=== PATIENT | female | born 1955 | race Caucasian/White ===

== ENCOUNTER → 2017-10-03 13:10 | Outpatient (CLI) | payer BC, SELFPAY ==
[2017-10-03 14:08] LABS: Amphetamine Urine VISTA NEGATIVE (<1000 ng/mL); Barbiturate Urine VISTA NEGATIVE (< 200 ng/mL); Benzodiazepine Urine VISTA NEGATIVE (< 200 ng/mL); Cocaine Urine VISTA NEGATIVE (< 300 ng/mL); Ecstacy Urine VISTA NEGATIVE (< 500 ng/mL); Methadone Urine VISTA NEGATIVE (< 300 ng/mL); PCP Urine VISTA NEGATIVE (< 25 ng/mL); THC Urine VISTA NEGATIVE (< 50 ng/mL); Vista UDS pH Range 7
== END ==
PROVIDERS: Family Provider Family Medicine; PCP Family Medicine; Visit Provider Anesthesiology Pain Medicine
DX: F11.20 Opioid dependence, uncomplicated (principal)
CPT/HCPCS: 80307

== ENCOUNTER 2017-12-08 08:15 | Emergency (ER) | payer BC, SELFPAY ==
[2017-12-08 08:16] VITALS: BP 101/71; PULSE 75; RESP 16; TEMP 37.1; O2SAT 98; BMI 20.2
--- NOTE | 2017-12-08 08:27 | ED.VISSUMM ---
- ER Visit Summary Date of Service: 12/08/17 Chief Complaint: Nausea, vomiting, diarrhea History of Present Illness: The patient is a 61 F who has had the above symptoms for the past 4 days. She states she has had multiple episodes of vomiting and loose stools. She has intermittent abdominal cramping with this. Denies any blood in the vomit or diarrhea. She can keep her medications down. She denies a fever. Denies any other symptoms. Physical Examination: Vital signs reviewed. HEENT exam unremarkable. Heart is regular rate and rhythm without murmurs. Lungs are clear to auscultation. Abdomen is soft and nontender. Extremities reveal no edema. Skin exam normal. Neurologic exam normal. Test Results: Potassium 2.5, sodium 130, chloride 89. White blood cell count 14.5 Emergency Department Course and Treatment: Given saline as well as Zofran. She still had some nausea so she was given Phenergan which help with her symptoms. She does have hypokalemia. This is replenished IV and orally. Patient will be given Phenergan for home. This is likely a viral etiology Treatment Plan: [] Disposition: Discharge Impression: Nausea, vomiting, diarrhea, hypokalemia This note was generated with XMOS dictation software. It may contain incorrect words, spelling, and punctuation that were not noted in review of the chart prior to signing ED Disposition - Plan for ED Patient: Chief Complaint: Nausea/Vomiting/Diarrhea Referrals: Moises Bean DO [Primary Care Provider] -
[2017-12-08] MEDS: 0.9% Normal Saline 1,000 ML 1000 ML IV (09:19)
[2017-12-08] MEDS: Ondansetron 4 MG/2 ML Vial IV (09:19)
[2017-12-08 09:23] LABS: Absolute Lymphocyte Count 2.19 X10^3/ul (0.83-4.51); Absolute Neutrophil Count 10.8 X10^3/uL (2.0-7.7); Basophil# 0.03 X10^3/uL; Basophil% 0.2 % (0-1); Eosinophil# 0.05 X10^3/uL; Eosinophils% 0.3 % (0-5); Hematocrit 45.2 % (37-47); Lymphocyte # 2.19 X10^3/ul (4.0); Lymphocyte % 15.1 % (19-41); Mean Corp Hgb Conc 35.4 g/gl (32-36); Mean Corpuscular Hgb 30.4 pg (27.0-32.0); Mean Corpuscular Volume 85.9 fL (81-99); Mean Platelet Vol. 9.7 fl (6.2-12.0); Monocyte# 1.36 X10^3/uL; Monocyte% 9.4 % (0-10); Neutrophil % 74.7 % (47-70); POSITIVE COUNT NO; POSITIVE DIFFERENTIAL NO; POSITIVE MORPHOLOGY NO; Platelet Count 315 K/mm3 (150-450); RBC Distribution Width CV 12.7 % (11.6-14.6); RBC Distribution Width SD 39.8 fl (35.1-43.9); Red Blood Count 5.26 M/mm3 (4.2-5.4); White Blood Count 14.5 K/mm3 (4.4-11.0)
[2017-12-08 09:45] LABS: AST(SGOT) 24 U/L (15-37); Alanine Aminotransfer ALT/SGPT 28 U/L (13-56); Albumin, Serum 3.7 g/dL (3.2-5.0); Alkaline Phosphatase 69 U/L (45-117); Anion Gap 10 (5-15); BUN 15 mg/dL (7-18); BUN/Creat Ratio 21.2 RATIO (10-20); Calcium,Total 9.2 mg/dL (8.5-10.1); Chloride 89 mmol/L (98-107); Creatinine, Serum 0.71 mg/dL (0.55-1.02); EST Glomerular Filtration Rate 90 mL/min (>60); Est Glom Filt Rate - Afr Amer 108 mL/min (>60); Estimated Creatinine Clearance 60.66 ml/min; Globulin 3.8 g/dL (2.2-4.2); Glucose 121 mg/dL (74-106); Lipase 92 U/L (73-393); Potassium 2.5 mmol/L (3.5-5.1); Protein, Total 7.5 g/dL (6.4-8.2); Sodium Level 130 mmol/L (136-145)
--- NOTE | 2017-12-08 09:47 | ED.RN ---
POTASSIUM 2.5, AWARE.
[2017-12-08] MEDS: proMETHazine 25 MG/ML Syringe 12.5 MG IV (10:15)
--- NOTE | 2017-12-08 10:57 | ED.DEP ---
ED Disposition - Plan for ED Patient: Disposition: Home or Assisted Living Chief Complaint: Nausea/Vomiting/Diarrhea Instructions: ED Diet Vomiting Diarrhea Prescriptions: proMETHazine tablet [Phenergan] 25 mg PO Q6H PRN PRN #10 tab PRN Reason: Nausea Referrals: Moises Bean DO [Primary Care Provider] -
[2017-12-08 11:53] VITALS: BP 161/93; PULSE 74; RESP 12; O2SAT 100
[2017-12-08 13:03] VITALS: BP 155/78; PULSE 73; RESP 16; O2SAT 99
== END 2017-12-08 13:05 | disposition home or self-care (01) ==
PROVIDERS: Emergency Provider Emergency Medicine; Family Provider Family Medicine; PCP Family Medicine
DX: R11.2 Nausea with vomiting, unspecified (principal); R19.7 Diarrhea, unspecified; E87.6 Hypokalemia; I10 Essential (primary) hypertension; Z72.0 Tobacco use
CPT/HCPCS: 80053; 83690; 85025; 96365; 96366; 96375; 99282; J7030; A4216; J2405

== ENCOUNTER → 2018-01-04 14:10 | Outpatient (CLI) | payer BC, SELFPAY ==
--- NOTE | 2018-01-04 17:49 | MRI_ITS ---
STUDY: MRI THORACIC SPINE WITHOUT CONTRAST REASON FOR EXAM: Female, 62 years old. Thoracic pain TECHNIQUE: Standardized fat and water weighted pulse sequences were obtained in the sagittal and axial planes. COMPARISON: None. FINDINGS: Normal kyphosis of the thoracic spine. Mild dextroconvex scoliosis. At T1-T2, disc osteophyte complex is present with mild central canal and bilateral foraminal stenoses. At T2-3, disc osteophyte complex is present with mild central canal and right foraminal stenoses. At T7-8, left paracentral disc protrusion is present with mild central canal and left foraminal stenoses. At T9-10, central disc protrusion is present with mild central canal stenosis. The other disc levels are unremarkable. No evidence of exiting nerve root impingement. Normal visualized thoracic cord. Normal conus medullaris that terminates at the . The soft tissue structures are unremarkable. MRI/Spine Thoracic (Routine) IMPRESSION: Multilevel degenerative disc disease as described. No evidence of cord pathology or nerve root impingement. Electronically Signed: Temo Justice MD at 4:59 EDT Tel , Service support ,
== END ==
LOC: MRI 01-31 14:10
PROVIDERS: Family Provider Family Medicine; PCP Family Medicine; Referring Provider Anesthesiology Pain Medicine; Visit Provider Anesthesiology Pain Medicine
DX: M54.6 Pain in thoracic spine (principal)
CPT/HCPCS: 72146

== ENCOUNTER → 2018-03-14 12:39 | Outpatient (CLI) | payer BC, SELFPAY ==
--- NOTE | 2018-03-14 12:40 | CDU_ITS ---
Reason For Study: Left carotid bruit Rt. Velocities/BP Lt. Velocities/BP Prox CCA 86.2/21.1 cm/sec. Prox CCA 76.8/22.9 cm/sec. Mid CCA 72.1/24.6 cm/sec. Mid CCA 76.2/24 cm/sec. Dist CCA 82.1/22.9 cm/sec. Dist CCA 82.1/26.4 cm/sec. Prox ICA 78.6/23.5 cm/sec. Prox ICA 128/33.4 cm/sec. Mid ICA 91.5/28.7 cm/sec. Mid ICA 79.9/29 cm/sec. Dist ICA 71.8/23.1 cm/sec. Dist ICA 73.1/18.4 cm/sec. Rt. ICA/CCA = 1.11. Lt. ICA/CCA = 1.67. Prox ECA 74.5/15.2 cm/sec. Prox ECA 76.2/14.7 cm/sec. Rt. Vert. 63.2/20 cm/sec. Lt. Vert. 24.7/9.62 cm/sec. Right Extracranial There is intimal thickening but no significant atherosclerotic plaque noted in the right common carotid artery. There is heterogeneous, smooth atherosclerotic plaque noted in the right internal carotid artery. There is intimal thickening but no significant atherosclerotic plaque noted in the right external carotid artery. Antegrade flow is noted in the right vertebral artery. Left Extracranial There is intimal thickening but no significant atherosclerotic plaque noted in the left common carotid artery. There is heterogeneous, irregular atherosclerotic plaque noted in the left internal carotid artery. The atherosclerotic plaque causes acoustic shadowing. There is intimal thickening but no significant atherosclerotic plaque noted in the left external carotid artery. Antegrade flow is noted in the left vertebral artery. Procedure Carotid Duplex 97387. Exam performed in department. Interpretation Summary Mild (<50%) stenosis right extracranial internal carotid. Mild (<50%) stenosis left extracranial internal carotid. Flow within the vertebral arteries is antegrade bilaterally. Ordering Physician: Moises Bean Referring Physician: Moises Bean Performed By: Toni BASSETT, Ragini NAILS and Student
--- OUTSIDE RECORDS SUMMARY | 2018-04-30 16:15 | XMS RPT_ITS ---
:1955 Author Organization OHIP Care Team Providers Name Role Phone Michelle Oh Attending Unavailable Tara Ohman Referring Unavailable Moises Bean Primary Care Unavailable Moises Bean Primary Care Unavailable Perry Gonzalez Attending Unavailable Michelle Oh Attending Unavailable Althea, Taraman Referring Unavailable Moises Bean Primary Care Unavailable Moises Bean Attending Unavailable Moises Bean Referring Unavailable Moises Bean Primary Care Unavailable Moises Bean Attending Unavailable Geneva, Moises Referring Unavailable Geneva, Moises Primary Care Unavailable PROBLEMS PROBLEMS DATE TYPE CONDITION / CODE ATTENDING STATUS SOURCE 10/17/2017 Unknown F11.20 - Opioid Basali, Ayman Active [place] dependence, Community uncomplicated / Hospital F11.20(ICD-10) Repository PROCEDURES PROCEDURES No Procedure Records FoundRESULTS RESULTS CAROTID DUPLEX Observed: 03/18/2018 Status: F Source: [place] ULTR[facility]OUND 10:09 AM [facility] REPOSITORY [facility] Cardiovascular Services [address] [place] [address] Carotid Duplex Ultrasound 03/14/18 1245 MR#: [id number] Acct: [id number] Name: ASHLEY SOLANO Rep #: [id number] : 1955 62 From: Miguel Arriaga MD Attending Dr: Moises Bean DO Status: REG CLI Ordering Dr: Moises Bean DO Date: 03/14/18 Location: [facility] Sex: F C Admitted: Reason For Study: Left carotid bruit Rt. Velocities/BP Lt. Velocities/BP Prox CCA 86.2/21.1 cm/sec. Prox CCA 76.8/22.9 cm/sec. Mid CCA 72.1/24.6 cm/sec. Mid CCA 76.2/24 cm/sec. Dist CCA 82.1/22.9 cm/sec. Dist CCA 82.1/26.4 cm/sec. Prox ICA 78.6/23.5 cm/sec. Prox ICA 128/33.4 cm/sec. Mid ICA 91.5/28.7 cm/sec. Mid ICA 79.9/29 cm/sec. Dist ICA 71.8/23.1 cm/sec. Dist ICA 73.1/18.4 cm/sec. Rt. ICA/CCA = 1.11. Lt. ICA/CCA = 1.67. Prox ECA 74.5/15.2 cm/sec. Prox ECA 76.2/14.7 cm/sec. Rt. Vert. 63.2/20 cm/sec. Lt. Vert. 24.7/9.62 cm/sec. Right Extracranial There is intimal thickening but no significant atherosclerotic plaque noted in the right common carotid artery. There is heterogeneous, smooth atherosclerotic plaque noted in the right internal carotid artery. There is intimal thickening but no significant atherosclerotic plaque noted in the right external carotid artery. Antegrade flow is noted in the right vertebral artery. Left Extracranial There is intimal thickening but no significant atherosclerotic plaque noted in the left common carotid artery. There is heterogeneous, irregular atherosclerotic plaque noted in the left internal carotid artery. The atherosclerotic plaque causes acoustic shadowing. There is intimal thickening but no significant atherosclerotic plaque noted in the left external carotid artery. Antegrade flow is noted in the left vertebral artery. Procedure Carotid Duplex [id number]. Exam performed in department. Interpretation Summary Mild (<50%) stenosis right extracranial internal carotid. Mild (<50%) stenosis left extracranial internal carotid. Flow within the vertebral arteries is antegrade bilaterally. Ordering Physician: Moises eBan Referring Physician: Moises Bean Performed By: Toni DANYELLE, JESU, Ragini and Student 03/18/18 1009 Date Miguel Arriaga MD CC: Moises Bean DO Date Dictated: 03/14/18 1245 Date Transcribed: 03/18/18 1009 Price Accuracy Supervisor: Signed SPINE THORACIC Observed: 01/04/2018 Status: F Source: [place] (ROUTINE) 5:49 PM [facility] [place] [place] REPOSITORY [facility] Imaging Services [address] [place] [address] Spine Thoracic (Routine) MR#: [id number] Acct: [id number] Name: ASHLEY SOLANO Rep #: [id number] : 1955 F 62 From: Temo Justice MD PCP: Moises Bean DO Status: PRE CLI Study: Spine Thoracic (Routine) Date of Exam: 01/04/18 Exam# [id number] Ordering Dr: Michelle Oh MD STUDY: MRI THORACIC SPINE WITHOUT CONTRAST REASON FOR EXAM: Female, 62 years old. Thoracic pain TECHNIQUE: Standardized fat and water weighted pulse sequences were obtained in the sagittal and axial planes. COMPARISON: None. FINDINGS: Normal kyphosis of the thoracic spine. Mild dextroconvex scoliosis. At T1-T2, disc osteophyte complex is present with mild central canal and bilateral foraminal stenoses. At T2-3, disc osteophyte complex is present with mild central canal and right foraminal stenoses. At T7-8, left paracentral disc protrusion is present with mild central canal and left foraminal stenoses. At T9-10, central disc protrusion is present with mild central canal stenosis. The other disc levels are unremarkable. No evidence of exiting nerve root impingement. Normal visualized thoracic cord. Normal conus medullaris that terminates at the . The soft tissue structures are unremarkable. MRI/Spine Thoracic (Routine) IMPRESSION: Multilevel degenerative disc disease as described. No evidence of cord pathology or nerve root impingement. Electronically Signed: Temo Justice MD at 4:59 EDT Tel , Service support , CC: Mcihelle Oh MD; Moises Bean DO Price Accuracy Supervisor: Signed DISCHARGE INSTRUCTION Observed: 12/08/2017 Status: F Source: [place] 10:58 AM [facility] [place] [place] REPOSITORY [facility] Medical Records Department [address] [place] [address] Discharge Instruction 12/08/17 1057 MR#: [id number] Acct: [id number] Name: ASHLEY SOLANO Rep #: [id number] : 1955 61 From: ePrry Gonzalez MD PCP: Moises Bean DO Status: REG ER ED Disposition - Plan for ED Patient: Disposition: Home or Assisted Living Chief Complaint: Nausea/Vomiting/Diarrhea Instructions: ED Diet Vomiting Diarrhea Prescriptions: proMETHazine tablet [Phenergan] 25 mg PO Q6H PRN PRN #10 tab PRN Reason: Nausea Referrals: Moises Bean DO [Primary Care Provider] - What to do if you have Problems For any increased pain, shortness of breath, bleeding, nausea or vomiting, chest pain, or any unexpected problems, contact your Primary Care Provider. Call [facility] ([phone]) or report to the closest Emergency Room. Call 911 if necessary. 12/08/17 1058 <Electronically signed by Perry Gonzalez MD> Date Perry Gonzalez MD Cosigner Signature (If Indicated): Date CC: Moises Bean DO EMERGENCY DEPARTMENT Observed: 12/08/2017 Status: F Source: [place] SUMMARY 10:57 AM [facility] [place] [place] REPOSITORY [facility] Medical Records Department [address] [place] [place] [address] Emergency Department Summary 12/08/17 0827 MR#: [id number] Acct: [id number] Name: RUSSASHLEY Rep #: [id number] : 1955 61 From: Perry Gonzalez MD PCP: Moises Bean DO Status: REG ER - ER Visit Summary Date of Service: 12/08/17 Chief Complaint: Nausea, vomiting, diarrhea History of Present Illness: The patient is a 61 F who has had the above symptoms for the past 4 days. She states she has had multiple episodes of vomiting and loose stools. She has intermittent abdominal cramping with this. Denies any blood in the vomit or diarrhea. She can keep her medications down. She denies a fever. Denies any other symptoms. Physical Examination: Vital signs reviewed. HEENT exam unremarkable. Heart is regular rate and rhythm without murmurs. Lungs are clear to auscultation. Abdomen is soft and nontender. Extremities reveal no edema. Skin exam normal. Neurologic exam normal. Test Results: Potassium 2.5, sodium 130, chloride 89. White blood cell count 14.5 Emergency Department Course and Treatment: Given saline as well as Zofran. She still had some nausea so she was given Phenergan which help with her symptoms. She does have hypokalemia. This is replenished IV and orally. Patient will be given Phenergan for home. This is likely a viral etiology Treatment Plan: [] Disposition: Discharge Impression: Nausea, vomiting, diarrhea, hypokalemia This note was generated with VitaFlavor dictation software. It may contain incorrect words, spelling, and punctuation that were not noted in review of the chart prior to signing ED Disposition - Plan for ED Patient: Chief Complaint: Nausea/Vomiting/Diarrhea Referrals: Moises Bean, DO [Primary Care Provider] - What to do if you have Problems For any increased pain, shortness of breath, bleeding, nausea or vomiting, chest pain, or any unexpected problems, contact your Primary Care Provider. Call [facility] ([phone]) or report to the closest Emergency Room. Call 911 if necessary. 12/08/17 1057 <Electronically signed by Perry Gonzalez MD> Date Perry Gnozalez MD Cosigner Signature (If Indicated): Date CC: Moises Bean DO CBC W/DIFF, AUTOMATED Collected: 12/08/2017 Status: F Source: [place] 9:10 AM [facility] [place] [place] REPOSITORY TYPE CODE TESTS RESULT OUT OF RANGE REFERENCE UNITS LAB L100.1000 4.4-11.0 K/mm3 High WBC 14.5 LAB L100.1200 4.2-5.4 M/mm3 Normal RBC 5.26 LAB L100.1300 12.0-15.0 g/dl High HGB 16.0 LAB L100.1400 37-47 % Normal HCT 45.2 LAB L100.1500 81-99 fL Normal MCV 85.9 LAB L100.1600 27.0-32.0 pg Normal MCH 30.4 LAB L100.1700 32-36 g/gl Normal MCHC 35.4 LAB L100.1810 11.6-14.6 % Normal RDW CV 12.7 LAB L100.1820 35.1-43.9 fl Normal RDW SD 39.8 LAB L100.1900 150-450 K/mm3 Normal PLT 315 LAB L100.2000 6.2-12.0 fl Normal MPV 9.7 LAB L100.2100 47-70 % High NEUT% 74.7 LAB L100.2200 19-41 % Low LY% 15.1 LAB L100.2300 0-10 % Normal MONO% 9.4 LAB L100.2400 0-5 % Normal EO% 0.3 LAB L100.2500 0-1 % Normal BASO% 0.2 LAB L100.2550 0.0-0.9 % Normal IM GRAN % 0.300 Result Comment: IG% - Immature Granulocytes (promyelocytes, myelocytes and metamyelocytes) > 1% indicates that a LEFT SHIFT is Present. LAB L100.2620 2.0-7.7 X10 3/uL High Absolute Neut 10.8 LAB L100.2720 0.83-4.51 X10 3/ul Normal Absolute Lymph 2.19 Performed By: #### L100.0100 #### [facility] [address] [place], [address] COMPREHENSIVE METABOLIC Collected: 12/08/2017 Status: F Source: [facility] 9:10 AM [facility] [place] [place] REPOSITORY TYPE CODE TESTS RESULT OUT OF RANGE REFERENCE UNITS LAB L501.0100 74-106 mg/dL High GLU 121 Result Comment: Fasting Glucose result from 100 to 125 mg/dL suggests IMPAIRED HOMEOSTASIS per A.D.A. criteria. Please note revised GLUCOSE reference range effective 2017. LAB L501.1000 7-18 mg/dL Normal BUN 15 LAB L501.1100 0.55-1.02 mg/dL Normal CREAT,SERUM 0.71 Result Comment: The validity of the calculated GFR AND GFRAA in patients over 70 years has not been determined. Clinical correlation is essential. LAB L501.1110 >60 mL/min Normal EST GFR 90 Result Comment: Non- GFR Calc LAB L501.1115 >60 mL/min Normal EST GFR - AA 108 Result Comment: GFR Calc LAB L501.1255 ml/min Normal Estimated CRCL 60.66 LAB L501.1300 10-20 RATIO High BUN/CRE 21.2 LAB L501.1500 6.4-8. g/dL Normal 2 T PROT 7.5 LAB L501.1800 3.2-5. g/dL Normal 0 ALB 3.7 LAB L501.1950 2.2-4. g/dL Normal 2 GLOB 3.8 LAB L501.2000 0.9-2. RATIO Normal 4 A/G 1.0 LAB L501.2200 8.5-10 mg/dL Normal .1 CA 9.2 LAB L501.4100 15-37 U/L Normal AST 24 LAB L501.4305 45-117 U/L Normal ALK P 69 LAB L501.4405 13-56 U/L Normal ALT 28 LAB L501.4600 0.20-1 mg/dL Normal .00 T BILI 0.90 LAB L501.5300 136-14 mmol/L Low 5 NA 130 LAB L501.5600 3.5-5. mmol/L Low 1 K alert 2.5 Result Comment: Critical Result(s) Called at: 09:45:21 12/08/2017 by: Antoine Cornejo to Emily CLAIM ADMINISTRATOR L501.5900 98-107 mmol/L Low CL 89 LAB L501.6100 21.0-32.0 mmol/L Normal CO2 31.0 LAB L501.6200 5-15 Normal GAP 10 Performed By: #### L500.4050, L501.2450 #### [facility] [address] [place], [place], [address] LIPASE Collected: 12/08/2017 Status: F Source: [place] 9:10 AM [facility] [place] [place] REPOSITORY TYPE CODE TESTS RESULT OUT OF RANGE REFERENCE UNITS LAB L501.2450 73-393 U/L Normal LIPASE 92 Performed By: #### L500.4050, L501.2450 #### [facility] [address] [place], [address] URINE DRUG SCREEN Collected: 10/03/2017 Status: F Source: [place] (FARAZ) 1:18 PM [facility] [place] [place] REPOSITORY Order Comment: Comments: [id number] Tapentadol urine List of Drugs Taken or Suspected? UNK TYPE CODE TESTS RESULT OUT OF RANGE REFERENCE UNITS LAB L505.0075 TO BE Normal CONFIRMED Result Comment: CONFIRMATORY TESTING FOR ALL POSITIVE URINE DRUG SCREEN RESULTS WILL ONLY BE SENT OUT UPON PHYSICIAN ORDER. VISTA Urine Drug Screen methods provide only preliminary analytical test results. A more specific alternate chemical method must be used in order to obtain a confirmed analytical result. Gas chromatography/mass spectrometery (GC/MS) is the preferred confirmatory method. Clinical consideration and professional judgement should be applied to any drug of abuse test result, particularly when preliminary positive results are used. URINE TCA TESTING MUST BE ORDERED SEPARATELY. USE TEST MNEMONIC: [facility] LAB L505.5005 VISTA UDS PH 7 Normal LAB L505.5015 <1000 ng/mL AMPHETAMINES Normal NEGATIVE LAB L505.5025 < 200 ng/mL BARBITIURATES Normal NEGATIVE LAB L505.5035 < 200 ng/mL BENZODIAZIPINE Normal NEGATIVE LAB L505.5045 < 300 ng/mL COCAINE Normal NEGATIVE LAB L505.5055 < 500 ng/mL ECSTACY Normal NEGATIVE LAB L505.5065 < 300 ng/mL METHADONE Normal NEGATIVE LAB L505.5075 < 300 ng/mL OPIATES Normal NEGATIVE LAB L505.5085 < 25 ng/mL PCP Normal NEGATIVE LAB L505.5095 < 50 ng/mL THC Normal NEGATIVE Performed By: #### L505.5000 #### [facility] [address] [place], [address] MISCELLANEOUS LAB Collected: 10/03/2017 Status: F Source: [place] PROCEDURE 1:18 PM [facility] [place] [place] REPOSITORY Order Comment: Comments: [id number] Tapentadol urine Test(s) Ordered: [id number] urine drug run lowest test TYPE CODE TESTS RESULT OUT OF RANGE REFERENCE UNITS LAB L801.1541 Normal [facility] [place] Result Comment: [id number] 6+OXYCODONE-BUND (ng/mL) DRUG RESULT SCREEN CUTOFF ____ Amphetamines,Urine Negative ng/mL 1000 Amphetamine test includes Amphetamine and Methamphetamine. Barbiturates Negative ng/mL 200 Benzodiazepines Negative ng/mL 200 Cannabinoid Negative ng/mL 20 Cocaine (Metab) Negative ng/mL 300 Opiates Negative ng/mL 300 Opiates test includes Codeine, Morphine, Hydromorphone, Hydrocodone. Oxycodone/Oxymorphone,Urine Negative ng/mL 300 Test includes Oxydodone and Oxymorphone. TESTING PERFORMED AT [facility]. ORIGINAL REPORT ON FILE IN LAB CONTAINS ADDITIONAL TEST SITE INFORMATION. Performed By: #### L801.1541 #### [facility] [address] [place], [id number] MUSCOGEEANEOUS LAB Collected: 10/03/2017 Status: F Source: [place] PROCEDURE 2 1:18 PM [facility] [place] [place] REPOSITORY Order Comment: Comments: [id number] Tapentadol urine List Test(s) Ordered by Physician: [id number] TRAMADOL URINE TYPE CODE TESTS RESULT OUT OF RANGE REFERENCE UNITS LAB L801.1543 Normal [facility] [place] 2 Result Comment: TEST RESULT LIMITS Tramadol Tramadol Positive Mixipp=474 Tramadol GC/MS Conf 6300 ng/mL Lszncz=548 TESTING PERFORMED AT [facility]. ORIGINAL REPORT ON FILE IN LAB CONTAINS ADDITIONAL TEST SITE INFORMATION. Performed By: #### L801.1543 #### [facility] [address] [place], [address] [facility] Collected: 10/03/2017 Status: F Source: [place] PROCEDURE 3 1:18 PM [facility] [place] [place] REPOSITORY Order Comment: Comments: [id number] Tapentadol urine List Test(s) Ordered by Physician: [id number] Tapentadol urine TYPE CODE TESTS RESULT OUT OF RANGE REFERENCE UNITS LAB L801.1545 Normal [facility] [place] 3 Result Comment: TEST RESULT LIMITS Tapentadol, Urine Tapentadol Positive Coniir=651 Tapentadol Confirm 325 ng/mL Ejvcph=338 Tapentadol detected; this finding is consistent with use of medication Nucynta, or generic formulations. TESTING PERFORMED AT [facility]. ORIGINAL REPORT ON FILE IN LAB CONTAINS ADDITIONAL TEST SITE INFORMATION. Performed By: #### L801.1545 #### [facility] [address] [place], [place] [address] [place] [place], [address] ALLERGIES ALLERGIES DATE TYPE / CODE NAME / CODE REACTION SEVERITY SOURCE 12/08/2017 Drug No Known Unknown [facility] Allergy/4160 Allergies/F00 [facility] [address](SNOMED [id number](RXNOR Repository CT) M) ENCOUNTERS ENCOUNTERS ADMIT/DISCHARGE ACCOUNT ADMITTING ENCOUNTER LOCATION SOURCE NUMBER CLASS 03/14/2018 [id number] Ambulatory [place] 4 [facility] ing:[facility] Repository 03/07/2018 [id number] Ambulatory [place] 9 [facility] ing:[facility] Repository 01/04/2018 [id number] Ambulatory [place] Wilson 8 [facility] ing:MRI Repository 12/08/2017/ [id number] Emergency [place] 8 1 [facility] ing:ED Repository 10/03/2017 [id number] Ambulatory [place] 7 [facility] ing:LAB Repository PAYERS PAYERS ENCOUNTER GUARANTOR PAYER SUBSCRIBER SOURCE 03/14/2018 ASHLEY Waddell [place] [id number] [place] Insurance:ANTHEMPolic [place] Number: [id number] Hospital [address]Gjm: [phone]) [id number] Repository [phone] (HP) Date:[id number] [address], [place] [address]NR: 03/14/2018 Secondary NOT GIVENUNK [place] Insurance:SELF PAY [facility] Number: Effective Repository Date:2018-03-08 03/07/2018 ASHLEY M Primary ROLAND L [place] [id number] [place] Insurance:ANTHEMPolic [place]URSTDOB[place] Number: [id number] Hospital [address]Xng: [phone]) [id number] Repository [phone] () Date:2848-90-87NI [address], [place] [address]QH: 03/07/2018 Secondary NOT GIVENUNK [place] Insurance:SELF PAY [facility] Number: Effective Repository Date:2018-02-27 01/04/2018 ASHLEY M Primary ROLAND L [place] [id number] [place] Insurance:ANTHEMPolic [place]URSTDOB: [place] Number: [id number] Hospital [address]Xip: [phone]) [id number] Repository [phone] () Date:8046-56-46JW [address] [place] [address]BI: 01/04/2018 Secondary NOT GIVENUNK [place] Insurance:SELF PAY [facility] Number: Effective Repository Date:2018-01-01 12/08/2017 Ashley M Primary Roland L [place] [id number] [place] Insurance:ANTHEMPolic [place]OB: [place] Number: [id number] Hospital [address]Wpq: [phone]) [id number] Repository [phone] () Date:1015-10-77KP [address], [place] [address]QE: 12/08/2017 Secondary NOT GIVENUNK [place] Insurance:SELF PAY [facility] Number: Effective Repository Date:2017-12-08 10/03/2017 Ashley Waddell [facility] [place] [facility] HurstDOB: Community chir[place] y Number: [id number] Hospital [address]Qbx: (311) [id number] Repository [phone] () Date:7077-71-76AV [address], [place] [address]IP: 10/03/2017 Secondary NOT GIVENUNK [place] Insurance:SELF PAY [facility] Number: Effective Repository Date:2017-10-03
== END ==
LOC: CVS 12:39
PROVIDERS: Family Provider Family Medicine; PCP Family Medicine; Referring Provider Family Medicine; Visit Provider Family Medicine
DX: R09.89 Other specified symptoms and signs involving the circulatory and respiratory systems (principal)
CPT/HCPCS: 93880

== ENCOUNTER → 2018-09-04 12:42 | Outpatient (CLI) | payer OTHER, SELFPAY ==
--- NOTE | 2018-09-04 12:48 | RAD_ITS ---
HISTORY: back pain after fall. hx of lower back surgery COMPARISON: An MRI of the thoracic spine is from January 04, 2018. FINDINGS: # of images incl. paperwork: 3 XR Spine Thoracic 3 Views: Thoracic vertebral bodies are normal in height. No acute thoracic spine fracture or subluxation. There is a kyphosis. Multilevel degenerative disc disease greatest at the apex of the kyphosis. This disc disease manifested by loss of disc height, endplate sclerosis, and bridging enthesophytes. Additional cervical spine degenerative changes present. There is a dextroscoliosis to the mid thoracic spine and levoscoliosis to the upper thoracic spine. Spinal fixation surgery within the lower lumbar spine. Heart is not enlarged. Descending thoracic aortic margin is normal. Descending thoracic aorta is mildly tortuous. RAD/Thoracic Spine 3 Views IMPRESSION: Degenerative disc disease with kyphoscoliosis to a mild degree. at 0154 Reported and signed by: Filippo Garza MD Electronically Signed: Filippo Garza MD at 1:53 EDT Tel , Service support ,
--- NOTE | 2018-09-04 12:52 | RAD_ITS ---
HISTORY: back pain after fall. hx of lower back surgery COMPARISON: None FINDINGS: # of images incl. paperwork: 3 XR Spine, 3 views. Previous imaging is of the thoracic spine. Most recent comparison images of the thoracic spine are from March 03, 2015. Posterior spinal fixation at the L5-S1 level was present in March 2015. Laminectomy at L4 was present at that time. Degenerative disc disease is present greatest at the L5-S1 level, but also present at the L4-L5 level. This disease manifested by loss of disc height, endplate cortical sclerosis, and small anterior enthesophytes. Atherosclerotic plaque is present within the abdominal aorta. There is no evidence of loosening of the hardware. RAD/Lumbar Spine 2 or 3 Views IMPRESSION: Chronic fixation of L5-S1. Old laminectomy at L4. L4-L5 and L5-S1 degenerative disc disease. at 0135 Reported and signed by: Filippo Garza MD Electronically Signed: Filippo Garza MD at 1:34 EDT Tel , Service support ,
== END ==
LOC: RAD 12:46
PROVIDERS: Family Provider Family Medicine; PCP Family Medicine; Referring Provider Anesthesiology Pain Medicine; Visit Provider Anesthesiology Pain Medicine
DX: M54.5 Low back pain (principal); M54.6 Pain in thoracic spine; W19.XXXA Unspecified fall, initial encounter
CPT/HCPCS: 72072; 72100

== ENCOUNTER → 2019-04-22 12:56 | Outpatient (CLI) | payer OTHER, SELFPAY ==
--- NOTE | 2019-04-22 12:59 | RAD_ITS ---
STUDY: X-RAY - CERVICAL SPINE REASON FOR EXAM: Female, 63 years old. CHRONIC BACK PAIN TECHNIQUE: 3 view(s) of the cervical spine were obtained. COMPARISON: None FINDINGS: There are degenerative changes of the anterior atlantoaxial articulation. Normal odontoid process. Normal cervical lordosis. Diffuse degenerative disc disease with multiple osteophytes. Carotid calcifications. RAD/Cerv Spine 2 or 3 Views IMPRESSION: Diffuse degenerative disc disease with multiple osteophytes. Normal alignment. Electronically Signed: Temo Justice MD at 22:13 EST Tel , Service support ,
== END ==
LOC: RAD 12:57
PROVIDERS: Referring Provider Anesthesiology Pain Medicine; Visit Provider Anesthesiology Pain Medicine
DX: M54.2 Cervicalgia (principal)
CPT/HCPCS: 72040

== ENCOUNTER → 2020-04-21 12:36 | Outpatient (CLI) | payer OTHER, SELFPAY ==
[2020-04-21 16:12] LABS: Amphetamine Urine VISTA NEGATIVE (<1000 ng/mL); Barbiturate Urine VISTA NEGATIVE (< 200 ng/mL); Benzodiazepine Urine VISTA NEGATIVE (< 200 ng/mL); Cocaine Urine VISTA NEGATIVE (< 300 ng/mL); Ecstacy Urine VISTA NEGATIVE (< 500 ng/mL); Methadone Urine VISTA NEGATIVE (< 300 ng/mL); PCP Urine VISTA NEGATIVE (< 25 ng/mL); THC Urine VISTA NEGATIVE (< 50 ng/mL); Vista UDS pH Range 6
== END ==
PROVIDERS: Referring Provider Anesthesiology Pain Medicine; Visit Provider Anesthesiology Pain Medicine
DX: F11.20 Opioid dependence, uncomplicated (principal)
CPT/HCPCS: 80307